=== PATIENT | female | born 1980 | race Caucasian/White ===

== ENCOUNTER 2019-10-29 21:00 | Emergency (ER) | payer OTHER, BC ==
[~2019-10-29] VITALS: Ht 167.6 cm; Wt 70.3 kg
[~2019-10-29 21:00] MED LIST: CIPRO500 MG PO; FLAGYL500 MG PO; NOHOMEMEDICATIONS; SUPER B COMPLE150 MG PO; WOMEN'S DAILY1 EAC2 PO
[2019-10-29 21:53] LABS: CALCIUM 9.3 mg/dL (8.5-10.1); CREATININE 0.9 mg/dL (0.6-1.3); POTASSIUM 3.7 mmol/L (3.5-5.1)
[2019-10-29 21:56] LABS: INFLUENZA A ANTIGEN Negative (Negative); INFLUENZA B ANTIGEN Negative (Negative)
[2019-10-29 21:58] LABS: ABSOLUTE BASOPHILS 0.1 thou/uL (0.0-0.2); ABSOLUTE EOSINOPHILS 0.4 thou/uL (0.0-0.7); ABSOLUTE LYMPHOCYTES 1.5 thou/uL (0.8-5.3); ABSOLUTE MONOCYTES 0.9 thou/uL (0.0-1.2); ABSOLUTE NEUTROPHILS 8.3 thou/uL (1.6-8.1); ALBUMIN 3.9 g/dL (3.4-5.0); BASOPHILS 0.8 %; EOSINOPHILS 3.5 %; HEMATOCRIT 45.2 % (37.0-47.0); HEMOGLOBIN 15.4 gm/dL (12.0-15.0); LYMPHOCYTES 13.3 %; MCH 31.4 pg (26.0-34.0); MCHC 34.1 g/dL (28.0-37.0); MONOCYTES 8.2 %; MPV 9.8 fl. (7.2-11.1); NUCLEATED RBCS 0 /100WBC; PLATELET COUNT* 304 thou/uL (150-400); POLYS 74.2 %; RBC 4.91 mil/uL (4.20-5.00); RDW-CV 13.5 % (10.5-14.5); TOTAL BILIRUBIN 0.2 mg/dL (<0.1-1.0); TOTAL PROTEIN 7.9 g/dL (6.4-8.2); WBC 11.2 thou/uL (4.0-11.0)
[2019-10-29] MEDS ORDERED: PREDNISONE50 MG PO (22:52)
[2019-10-29] MEDS ORDERED: PROAIR HFA8.5 GM INH ×2 (22:52→22:55)
[2019-10-29 23:05] VITALS: BP 132/78
== END 2019-10-29 23:06 | disposition home or self-care (01) ==
LOC: M.ERS 21:00
PROVIDERS: Emergency Medicine
DX: J40 Bronchitis, not specified as acute or chronic (principal); F17.210 Nicotine dependence, cigarettes, uncomplicated; Z88.5 Allergy status to narcotic agent

== ENCOUNTER 2019-11-04 11:58 | Emergency (ER) | payer OTHER, BC ==
[~2019-11-04] VITALS: Ht 167.6 cm; Wt 65.8 kg
[~2019-11-04 11:58] MED LIST changes: +PREDNISONE50 MG PO; +PROAIR HFA8.5 GM INH
[2019-11-04 12:40] LABS: INFLUENZA A ANTIGEN Negative (Negative); INFLUENZA B ANTIGEN Negative (Negative)
[2019-11-04] MEDS ORDERED: DOXYCYCLINE 10100 MG PO (12:41)
[2019-11-04] MEDS ORDERED: PREDNISONE 10 M10 MG PO (12:41)
[2019-11-04] MEDS ORDERED: PULMICORT FLEX90 MCG INH (13:27)
[2019-11-04 14:22] VITALS: BP 125/85
== END 2019-11-04 14:22 | disposition home or self-care (01) ==
LOC: M.ERS 11:58
PROVIDERS: Nurse Practitioner Family
DX: J06.9 Acute upper respiratory infection, unspecified (principal); F17.210 Nicotine dependence, cigarettes, uncomplicated; Z88.6 Allergy status to analgesic agent